=== PATIENT | female | born 1940 | race Caucasian/White ===

== ENCOUNTER 2017-03-29 16:13 | Inpatient (IN) | payer MEDICARE, OTHER ==
[~2017-03-29] VITALS: Ht 149.9 cm; Wt 56.8 kg
[~2017-03-29 16:13] MED LIST: BET80 PO; FURO40TA4 PO; NIAC10002 PO; POTA99TA21 PO; [UNRECOGNIZED DRUG - CODE] PO
[2017-03-29 16:16] VITALS: BP 151/87; PULSE 105; RESP 20; O2SAT 98
--- NOTE | 2017-03-29 16:41 | ED.REPORT ---
HPI-Dyspnea / Wheezing Date of Service Mar 29, 2017 ED Provider: Piero Castillo MD The pt is a 77 y/o female w/ a hx of CHF, thrombocytopenia, HTN, and three MIs presenting to the ED via EMS c/o SOB onset two weeks ago. 4 days ago she reports needing 6 pounds of fluid removed at [facility]. The SOB is exacerbated w/ activity. Denies CP, fevers, or a cough. She reports being on Lasix 40 mg once daily until 4 days ago, when she increased the dose to twice daily. She is also on daily Aspirin. The pt had an echo today w/ Dr. Howe who told her to come to the ED. She had new anterolateral wall defect w/ an ejection fraction of 20-25 %. Code status: Full code Nursing Notes Stated Complaint: SOB Chief Complaint: SOB Nursing Notes Reviewed: Yes Allergies: Coded Allergies: Beta-Blockers (Beta-Adrenergic Bloc (Verified Allergy, Severe, EPS HOSPITALISATION; leg pain; tremulous, 07/15/13) digoxin (Verified Allergy, Severe, loss of consciousness, 07/15/13) required long hospital stay, per pt report. dipyridamole (Verified Allergy, Severe, Cardiac Arrest, 07/15/13) Ukohiml-Unb-Kfe Reductase Inhibitor (Verified Allergy, Intermediate, leg pain, fainting, extreme low BP, 07/15/13) per pt report. dronedarone HCl (Verified Allergy, Intermediate, Increased arrthymias, ) isosorbide dinitrate (Verified Allergy, Intermediate, shortness of breath , 07/15/13) per pt report. lisinopril (Verified Allergy, Intermediate, Decreased BP; fainting, ) nebivolol HCl (Verified Allergy, Intermediate, Increased arrthymias, ) sertraline HCl (Verified Allergy, Intermediate, Nausea; diarrhea, 07/15/13) sodium bicarbonate (Verified Allergy, Intermediate, IV route: Dizzy; vomiting; dirrhea, 07/15/13) spironolactone (Verified Allergy, Mild, muscle tingling, 07/15/13) per pt report. KARINE Inhibitors (Verified Allergy, Unknown, 03/29/17) Contrast Media (Verified Allergy, Unknown, 03/29/17) fenofibrate (Verified Allergy, Unknown, 03/29/17) rivaroxaban (Verified Allergy, Unknown, excess bleeding, 01/27/14) per pt report. hydrocodone bitartrate (Verified Adverse Reaction, Severe, extreme itching , 07/15/13) required benadryl, per pt report. diltiazem HCl (Verified Adverse Reaction, Intermediate, itching skin, 07/15) required benadryl, per pt report. diazepam (Verified Adverse Reaction, Unknown, total loss of emotional control, 01/27/14) per pt report. ezetimibe (Verified Adverse Reaction, Unknown, diarrhea, hair loss, ) per pt report. Uncoded Allergies: Bicarbonate of sodium (Adverse Reaction, Intermediate, Dizzyness, vomitting , headache, 12/28/12) per pt report. Scheduled Aspirin (Aspirin) 325 Mg Tablet 325 MG PO HS Niacin (Niacin) 1,000 Mg Tablet.er 2,000 MG PO HS Scheduled PRN Furosemide (Furosemide) 40 Mg Tablet 40 MG PO DAILY PRN PRN PT REQUEST Potassium Gluconate (Potassium) 99 Mg Tablet 99 MG PO PRN dysthrymia General Time Seen by MD: 16:31 Chief Complaint Shortness of breath Hx Obtained From: Patient Arrived By: Walk-in Sudden in Onset?: Yes Onset Occurred: More than a week ago... (3 weeks) Symptom Duration: Since onset Recent Healthcare: No recent hospitalization, Recent doctor visit Similar Sx Previous: Yes Past Medical History Code status: Full code Past Medical History CHF Thrombocytopenia HTN 3 MIs CAD CABG in October of 2016 Past Surgical History Stents placed Tonsillectomy Total hysterectomy Defibrillator and pacemaker placed Bypass surgery Smoking History Unknown if Ever Smoker Social History Other Social History: Good social support Ambulatory Status Independent Review of Systems Constitutional: Denies: Fever Respiratory: Reports: Shortness of breath, Denies: Non-productive cough Cardiovascular: Denies: Chest pain Complete sys rev & neg: except as marked. Physical Exam Initial Vital Signs Vital Signs (First) Date Time Temp Pulse Resp B/P Pulse Ox O2 Delivery O2 Flow Rate FiO2 03/29/17 16:16 36.7 105 20 151/87 98 Room Air Initial VS: Reviewed Head / Eyes: Atraumatic, Normocephalic, PERRL ENT: Mucous membranes moist, Conjunctiva normal, No scleral icterus Extremities: Vascular intact, Neuro intact, No swelling, No tenderness Skin: Warm, Dry, No cyanosis Neurologic: Alert, Oriented, Nonfocal Psychiatric: Mood/affect normal, Behavior normal, Normal thought content General/Constitutional: Awake, Alert Neck: Atraumatic, Supple, Full range of motion Respiratory / Chest: Breath sounds = bilat Bibasilar crackles Cardiovascular: Regular rhythm Heart Rate / Rhythm: Positive: Tachycardia 2+ bilateral LE edema Holosystolic murmur at the L upper sternal border and apex Interpretation & Diagnostics Lab Results Interpretation Result Diagram: 03/30/17 0515 03/30/17 0515 Test 03/29/17 16:35 Hemoglobin A1c 5.4% (4.8-5.6) Total Bilirubin 0.5mg/dL (0.0-1.2) Aspartate Amino Transf (AST/SGOT) 26U/L (0-50) Alanine Aminotransferase (ALT/SGPT) 18U/L (0-32) Alkaline Phosphatase 76U/L (25-165) Pro-B-Type Natriuretic Peptide 5794pg/mL (0-738) Total Protein 8.2g/dL (6.4-8.4) Albumin 4.0g/dL (3.4-5.0) Thyroid Stimulating Hormone (TSH) 1.310uIU/mL (0.450-4.500) ECG Interpretation ECG Interpretation: Rate 96 Sinus rhythm PVCs T waves in v1-v5 Time: 16:44 Interpreted by: ED physician X-Ray Chest Interpretation Chest Xray Interpretation: IMPRESSION: 1. Interval enlargement of cardiomediastinal silhouette representing pericardial effusion or cardiomegaly. 2. New left pleural effusion. 3. Please correlate for clinical evidence of congestive heart failure exacerbation. Dictated by: Eliu Hale M.D. on 03/29/2017 at 16:57 Approved by: Eliu Hale M.D. on 03/29/2017 at 16:59 View: Portable, 1 view Interpretation / Wet Read by: Interpret - Radiologist Re-Eval/Medical Decision Med Decision/Clinical Course 77-year-old female history of CHF sent in by cardiology for admission for CHF exacerbation. She had an echocardiogram today which showed significant worsening of her CHF from previous EF 20-25% she reports exertional dyspnea. She is satting 98% on room air. Dr. Franklinol the patient and asked her to be admitted for diuresis. She was given 40 of IV Lasix in the ER. She has been on 40 mg twice a day for the last 4 days previously for milligrams daily. Source of Hx: Old records Consultation : Referral / Consult Name: Josephine Resendiz DO Consulted With: Hospitalist Call Returned at: 17:30 High Speed Operator: Will see patient, Agrees with eval, Agrees with plan, Accepts admit Counseled Regarding: Diagnosis, Lab results, Need for admission Discharge & Departure Impression: Primary Impression: CHF exacerbation Congestive heart failure type: unspecified congestive heart failure type Qualified Code: I50.9 - Heart failure, unspecified Disposition: ADMITTED TO HOSPITAL Discharge Condition All VS Reviewed: Yes Condition: Stable Referrals: NOPCP (PCP) Fabiana Howe MD Scribe Attestation Portions of this note were transcribed by Phil Dawn. I, Dr. Castillo personally performed the history, physical exam and medical decision-making; I reviewed and confirmed the accuracy of the information in the transcribed note. copies to: Fabiana Howe MD, Ben M MD Mar 29, 2017 16:41 Phil Dawn Mar 29, 2017 16:44 (6.4-8.4) Albumin 4.0g/dL (3.4-5.0) ECG Interpretation ECG Interpretation: Rate 96 Sinus rhythm PVCs T waves in v1-v5 Time: 16:44 Interpreted by: ED physician X-Ray Chest Interpretation Chest Xray Interpretation: IMPRESSION: 1. Interval enlargement of cardiomediastinal silhouette representing pericardial effusion or cardiomegaly. 2. New left pleural effusion. 3. Please correlate for clinical evidence of congestive heart failure exacerbation. Dictated by: Eliu Hale M.D. on 03/29/2017 at 16:57 Approved by: Eliu Hale M.D. on 03/29/2017 at 16:59 View: Portable, 1 view Interpretation / Wet Read by: Interpret - Radiologist Re-Eval/Medical Decision Source of Hx: Old records Consultation : Referral / Consult Name: Josephine Resendiz DO Consulted With: Hospitalist Call Returned at: 17:30 High Speed Operator: Will see patient, Agrees with eval, Agrees with plan, Accepts admit Counseled Regarding: Diagnosis, Lab results, Need for admission Discharge & Departure Impression: Primary Impression: CHF exacerbation Congestive heart failure type: unspecified congestive heart failure type Qualified Code: I50.9 - Heart failure, unspecified Disposition: ADMITTED TO HOSPITAL Discharge Condition All VS Reviewed: Yes Condition: Stable Referrals: NOPCP (PCP) Fabiana Howe MD Scribe Attestation Portions of this note were transcribed by Phil Dawn. I, Dr. Castillo personally performed the history, physical exam and medical decision-making; I reviewed and confirmed the accuracy of the information in the transcribed note. copies to: Fabiana Howe MD, Ben M MD Mar 29, 2017 16:41 Phil Dawn Mar 29, 2017 16:44
[2017-03-29 16:53] LABS: EOSINOPHILS % (AUTO) 2.1 % (0-5); Mean Corpuscular Hemoglobin 28.9 pg (27.0-35.0); Mean Corpuscular Volume 92.3 fL (81-100); NEUTROPHILS % (AUTO) 57.5 % (40-74); Platelet Count 129 bil/L (150-400)
--- NOTE | 2017-03-29 17:01 | DRSVH ---
PROCEDURE: X-RAY CHEST ONE VIEW, PORTABLE ([id number]) INDICATIONS: dyspnea TECHNIQUE: One view of the chest was acquired. COMPARISON: [facility], , CHEST 1VW (PORTABLE), 01/27/2014, 11:59. FINDINGS: Surgical changes and devices: Sternotomy with mediastinal postoperative changes and left-sided cardia c pacer. Lungs and pleura: Small new left-sided pleural effusion. No pneumothorax. Lungs are clear. Mediastinum: Mediastinal contours appear normal. Heart size is enlarged and increased since the pre vious study. Bones and chest wall: No suspicious bony lesions. Overlying soft tissues appear unremarkable. IMPRESSION: 1. Interval enlargement of cardiomediastinal silhouette representing pericardial effusion or cardiome ritu. 2. New left pleural effusion. 3. Please correlate for clinical evidence of congestive heart failure exacerbation. Dictated by: Eliu Hale M.D. on 03/29/2017 at 16:57 Approved by: Eliu Hale M.D. on 03/29/2017 at 16:59
[2017-03-29 17:04] VITALS: BP 113/64; PULSE 98; RESP 24; O2SAT 95
[2017-03-29 17:17] LABS: TROPONIN T < 0.010 ug/L (0.0-0.011)
[2017-03-29] MEDS ORDERED: Senna-Docusate 8.6-50 mg Tablet PO PRN (17:25)
[2017-03-29] MEDS ORDERED: Polyethylene Glycol (PEG) 17 Gm Powder PO PRN (17:25)
[2017-03-29] MEDS ORDERED: Atropine 1 mg/10 mL (Code) Syringe IVPUSH PRN (17:25)
[2017-03-29] MEDS ORDERED: Furosemide 10 mg/mL 4 mL Inj IVPUSH ONE (17:25)
[2017-03-29] MEDS ORDERED: Alum-Mag Hydrox-Simeth 30 mL Suspension PO PRN (17:25)
[2017-03-29] MEDS ORDERED: Ondansetron 2 mg/mL 2 mL Inj IVPUSH PRN (17:25)
[2017-03-29 17:27] LABS: Magnesium 2.1 mg/dL (1.6-2.6)
[2017-03-29] MEDS ORDERED: ASPI325T32 PO (17:33)
[2017-03-29 17:53] VITALS: BP 140/71; PULSE 95; RESP 18; O2SAT 94
[2017-03-29 17:57] VITALS: BP 138/63; PULSE 107; RESP 18; O2SAT 96
[2017-03-29 18:22] VITALS: PULSE 92
[2017-03-29 18:37] LABS: APPEARANCE,URINE CLEAR (CLEAR,HAZY); COLOR,URINE YELLOW (YELLOW); OCCULT BLOOD,URINE NEGATIVE (NEGATIVE); UROBILINOGEN,URINE NORMAL (NORMAL)
--- NOTE | 2017-03-29 18:38 | NUR ---
Admit Pt admitted to [facility] room 3006 via ED, report received from Mitra GRIGGS. Pt arrived via stretcher, a/o x 4, able to transfer self to scale and bed, steady gait observed. Admit completed, pt eating dinner, oriented to room, call light and bathroom. Pt currently eating dinner comfortably in bed.
--- NOTE | 2017-03-29 19:01 | PCM.HPMED ---
Subjective Date of Service Mar 29, 2017 Primary Provider: Admitting Physician: Hari Maddox MD Primary Care Physician: Nopmainor Attending Physician: Hari Maddox MD Chief Complaint: Dyspnea. . History of Present Illness: Karla Ruggiero is a 77-year-old female with a past medical history significant for coronary artery disease status post OH 3, numerous bare metal coronary stents, and four-vessel CABG 2, heart failure with reduced ejection fraction 20 -25%, hyperlipidemia and elevated lipoprotein a who presented to [facility] emergency Department at instruction of her tile helper Dr. Howe for acute on chronic CHF exacerbation. The patient reports that she has been experiencing shortness of breath and dyspnea on exertion for several weeks. She endorses associated orthopnea. She was seen 4 days ago at [facility] emergency department and received IV diuresis and reportedly diuresed approximately 6 pounds of fluid over 2-3 hours. She recently had an echocardiogram performed which revealed worsening heart failure with reduced ejection fraction now 20-25% from 35-40% previously. Her tile helper, Dr. Howe, called her this afternoon and instructed her to go to the emergency Department. The patient denies headache, vision changes, cough, chest pain, paroxysmal nocturnal dyspnea, abdominal pain, nausea, vomiting, fever, chills, dysuria, diarrhea or constipation. She reports that her lower extremity edema was worsening until 4 days ago when she was seen at [facility]. Vital signs in the ER: Temperature 36.5. Pulse 107. Respiratory rate 18. Blood pressure 138/63. Pulse ox 96% on room air. She received furosemide IV 40 mg 1 in the ED. No PCP. Material Handler 2Nd Shift is Dr. Howe and Dr. Guardado in [place], [place]. . Review of Systems: A comprehensive review of systems was conducted with the patient and found to be negative except as above in the History of Present Illness. . Allergies Coded Allergies: Beta-Blockers (Beta-Adrenergic Bloc (Verified Allergy, Severe, EPS HOSPITALISATION; leg pain; tremulous, 07/15/13) digoxin (Verified Allergy, Severe, loss of consciousness, 07/15/13) required long hospital stay, per pt report. dipyridamole (Verified Allergy, Severe, Cardiac Arrest, 07/15/13) Cjqelkp-Uhn-Rhy Reductase Inhibitor (Verified Allergy, Intermediate, leg pain, fainting, extreme low BP, 07/15/13) per pt report. dronedarone HCl (Verified Allergy, Intermediate, Increased arrthymias, ) isosorbide dinitrate (Verified Allergy, Intermediate, shortness of breath , 07/15/13) per pt report. lisinopril (Verified Allergy, Intermediate, Decreased BP; fainting, ) nebivolol HCl (Verified Allergy, Intermediate, Increased arrthymias, ) sertraline HCl (Verified Allergy, Intermediate, Nausea; diarrhea, 07/15/13) sodium bicarbonate (Verified Allergy, Intermediate, IV route: Dizzy; vomiting; dirrhea, 07/15/13) spironolactone (Verified Allergy, Mild, muscle tingling, 07/15/13) per pt report. KARINE Inhibitors (Verified Allergy, Unknown, 03/29/17) Contrast Media (Verified Allergy, Unknown, 03/29/17) fenofibrate (Verified Allergy, Unknown, 03/29/17) rivaroxaban (Verified Allergy, Unknown, excess bleeding, 01/27/14) per pt report. hydrocodone bitartrate (Verified Adverse Reaction, Severe, extreme itching , 07/15/13) required benadryl, per pt report. diltiazem HCl (Verified Adverse Reaction, Intermediate, itching skin, 07/15) required benadryl, per pt report. diazepam (Verified Adverse Reaction, Unknown, total loss of emotional control, 01/27/14) per pt report. ezetimibe (Verified Adverse Reaction, Unknown, diarrhea, hair loss, ) per pt report. Uncoded Allergies: Bicarbonate of sodium (Adverse Reaction, Intermediate, Dizzyness, vomitting , headache, 12/28/12) per pt report. Home Medications Aspirin 325 mg daily. Furosemide 40 mg daily as needed. Niacin 2000 mg daily at bedtime. Potassium gluconate 99 mg as needed for dysrhythmia. . PMH 1. CAD status post OH 3 and four-vessel CABG 2. 2. Hyperlipidemia. 3. Elevated Lipoprotein a. 4. Heart failure with reduced ejection fraction 20-25% status post defibrillator and pacemaker insertion. . Surgical History 1. Tonsillectomy. 2. Tubal . 3. Hysterectomy. 4. Fibrous tumor removal and bilateral salpingo-oophorectomy. 5. Lipoma removal. 6. Lasix. 7. Four-vessel CABG 2 (most recent October 2016). 8. Coronary bare-metal stents ~20-30. 9. Defibrillator and pacemaker insertion. . Family History Mother who of COPD at 79 years old. Father who had CABG and of heart failure at 90 years old. One brother who of a brain tumor at 38 years old. 3 brothers and 1 sister who are alive and healthy. . Social History Hx Alcohol Use: Yes (1 mixed drink/glass of wine 1x/week) Hx Substance Use: No Hx Tobacco Use: No Smoking Status: Never Smoker Additional Information The patient is . She has 3 sons and 1 daughter who are healthy. 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 . Exam Vital Signs Vital Sign - Last Date Time Temp Pulse Resp B/P Pulse Ox O2 Delivery O2 Flow Rate FiO2 03/29/17 17:57 36.5 107 18 138/63 96 Room Air Exam General: Older female lying in bed and in no acute distress, well-developed, well-nourished, appropriately interactive. HEENT: Normocephalic, atraumatic. External ears without defect. Pupils equal, round, and reactive to light. Anicteric sclerae, moist conjunctivae, and no lid lag. Oropharynx free of erythema and cobble stoning with moist mucosa. Neck: Supple with full range of motion. No jugular venous distension. No bruits. No lymphadenopathy or thyromegaly. Cardiovascular: Regular rate and rhythm with soft holosystolic murmur at LUSB. No rubs or gallops appreciated. Pacemaker in left chest. Pulmonary: Clear to auscultation except for fine bibasilar crackles. No wheezes or rhonchi. Normal respiratory effort with no use of accessory muscles. Abdomen: Soft, nontender, nondistended, bowel sounds present. No hepatosplenomegaly or masses appreciated. Extremities: No clubbing or cyanosis. Mild pitting edema bilaterally in lower extremities to pretibial area. Skin: Normal temperature, turgor, and texture; no rash, ulcers, or subcutaneous nodules appreciated. Neurological: Cranial nerves grossly intact. Normal muscle strength, tone, and bulk. Reflexes, coordination, and sensory function within normal limits. No known gait impairment. Psychiatric: Normal mood and affect. Alert and oriented to person, place, and time. . Lab and Diagnostics Labs Item Value Date Time Calcium Level 9.1 mg/dL 03/29/17 1635 Magnesium Level 2.1 mg/dL 03/29/17 1635 Total Bilirubin 0.5 mg/dL 03/29/17 1635 Aspartate Amino Transf (AST/SGOT) 26 U/L 03/29/17 1635 Alanine Aminotransferase (ALT/SGPT) 18 U/L 03/29/17 1635 Alkaline Phosphatase 76 U/L 03/29/17 1635 Troponin T < 0.010 ug/L 03/29/17 1635 Pro-B-Type Natriuretic Peptide 5794 pg/mL H 03/29/17 1635 Total Protein 8.2 g/dL 03/29/17 1635 Albumin 4.0 g/dL 03/29/17 1635 Thyroid Stimulating Hormone (TSH) 1.310 uIU/mL 03/29/17 1635 Result Diagram: 03/29/17 1635 03/29/17 1635 X-Rays, CTs and MRIs X-RAY CHEST ONE VIEW, PORTABLE IMPRESSION: 1. Interval enlargement of cardiomediastinal silhouette representing pericardial effusion or cardiomegaly. 2. New left pleural effusion. 3. Please correlate for clinical evidence of congestive heart failure exacerbation. Dictated by: Eliu Hale M.D. on 03/29/2017 at 16:57 . 12-lead ECG EKG: Sinus rhythm, heart rate 96, left axis, Prolonged QTC at 530 ms otherwise normal intervals, poor R-wave progression, LVH, frequent PVCs, pathological Q waves in leads V1 through V3 indicative of old anteriolateral OH, no acute ischemic changes such as ST elevation or depression. . Cardiac Echo Impressions Echocardiogram Interpretation Summary: The left ventricle is moderately dilated (LVIDd increased from 5.2 to 6.1 cm). The ejection fraction is estimated to be 20-25%. Compared to the prior exam, the left ventricular function is reduced (from 35 to 40% to 20-25%). Except basal posterolateral and the basal anterolateral segments, rest of the LV segments are severely hypokinetic to akinetic. Compared to the prior exam, the mid to distal anterolateral and the apical wall motion abnormalities has increased in severity. Spontaneous contrast is noted consistent with low flow state. The right ventricle is borderline dilated. Right ventricular systolic function is moderately reduced. There is a pacemaker lead in the right ventricle. There is moderate to severe mitral regurgitation. Compared to the prior echo study, there has been an increase in the severity of mitral regurgitation. There is mild to moderate tricuspid regurgitation. Compared to the prior echo exam, there has been an increase in TR severity. The right ventricular systolic pressure is estimated at 41 mmHg assuming a right atrial pressure of 3 mm Hg. Compared to the prior echo exam, there has been an increase in the severity of pulmonary hypertension. Reading Physician:PM . Assessment & Plan Karla Ruggiero is a 77-year-old female with a past medical history significant for coronary artery disease status post OH 3, numerous bare metal coronary stents, and four-vessel CABG 2, heart failure with reduced ejection fraction 20 -25%, hyperlipidemia and elevated lipoprotein a who presented to [facility] emergency Department at instruction of her tile helper Dr. Howe for acute on chronic CHF exacerbation. 1. Acute on chronic heart failure with reduced ejection fraction 20-25% exacerbation, present on admission. Active - probably precipitated by recent silent OH given new wall motion abnormality/ akinesis and new EF worsening - The patient has a history of systolic CHF , diastolic CHF and cor pulmonale secondary to sleep apnea and obesity hypoventilation syndrome. - Echocardiogram demonstrated worsening CHF with EF 20-25%, as above. - EKG demonstrated sinus rhythm with prolonged QTC of 530 ms and frequent PVCs without acute ischemic changes. - BNP 5794. - Chest x-ray demonstrated interval enlargement of cardiomediastinal silhouette representing pericardial effusion or cardiomegaly and new left pleural effusion , as above. - Continue diuresis with Lasix IV 40 mg daily. - Ordered daily standing weights, strict I&O's, 2 L fluid restriction, and CHF teaching. - Dr. Howe has been consulted and cardiology will plan to see the patient. Chronic problems: 2. Coronary artery disease, present on admission. Stable. - The patient has had OH 3 and four-vessel CABG 2 with numerous cardiac bare- metal stents - Continue aspirin 325 mg daily 3. Hyperlipidemia and Lipoprotein a, present on admission. Presumed stable. - Patient reports allergy to statin therapy. - Continue niacin 2000 mg daily at bedtime. PRN antiemetics: Zofran and Maalox. PRN bowel regimen: Senna and MiraLAX. PRN analgesics: Tylenol. Patient is admitted under inpatient status with expected length of stay greater than 2 midnights due to severity of presenting symptoms, risk of adverse event, and complexity of treatment plan. . VTE Prophylaxis: Sub-Q Heparin (Unfractionated) Resuscitation Status: CPR: Attempt Resuscitation Attending Statement Patient seen independently. Case discussed with resident physician Dr Resendiz, I agree with history, exam, assessment and plan as outlined above copies to: Fabiana Howe MD, [place] M DO Mar 29, 2017 18:18 Hari Maddox MD Mar 30, 2017 07:03
[2017-03-29] MEDS: Niacin SR 500 mg ER12 Tablet PO SCH (20:44)
[2017-03-29 22:07] VITALS: BP 103/58; PULSE 91; RESP 18; O2SAT 95
[2017-03-30] VITALS (12 sets, daily range): BP systolic 86–132; BP diastolic 45–72; PULSE 59–93; RESP 18–20; O2SAT 94–99
[2017-03-30] MEDS: Heparin 5,000 Unit/mL Inj SUBQ SCH ×3 (00:17→18:16)
[2017-03-30] MEDS: Sodium Chloride LOK Flush 10 mL Syringe IVFLUSH SCH ×3 (00:17→18:16)
--- NOTE | 2017-03-30 05:30 | NUR ---
Stable Overnight Pt c/o cramping at LEs at beginning of the shift, pt had Lasix IV at dayshift, pt suspected symptoms caused by low K+, 03/29 am K 3.8 WNL prior to Lasix, recheck K has been ordered am 03/30. Warm blanket provided to LEs, and pt stretched leg muscles for a while. Leg cramping resolved. Otherwise no complains overnight, denies chest pain or pressure, some SOB on exertion, able to lying down HOB 30 degree during sleep, some crackles at left posterior LL, lung sounds left <right, no wheezes, TELE: SR 80s-90s, lots of multifocal PVCs, IVCD, rare pacing rate per court monitor. Trace edema at bilateral LEs, void large amount of urine. CHF educational brochure provided to pt, educated s/s of CHF, pt verbalizes understanding. Continue monitoring.
[2017-03-30 05:47] LABS: EOSINOPHILS % (AUTO) 5.5 % (0-5); MONOCYTES % (AUTO) 17.2 % (4-12); Mean Corpuscular Hemoglobin 28.9 pg (27.0-35.0); Mean Corpuscular Volume 92.6 fL (81-100); NEUTROPHILS % (AUTO) 48.6 % (40-74); Platelet Count 139 bil/L (150-400)
[2017-03-30 06:17] LABS: Creatine Kinase 53 U/L (21-215)
[2017-03-30] MEDS ORDERED: Furosemide 10 mg/mL 4 mL Inj IVPUSH SCH ×2 (09:55→17:00)
--- NOTE | 2017-03-30 11:28 | NUR ---
Anthony Pt reporting feeling HR increased, and reports that it usually happens right before any indication of BMs. health technician hearing reporting HR 130s and coming down. Addendum: 03/30/17 at 1134 by CHRIST VERA RN Reports small BM after episode and now HR feels increased again. health technician hearing reporting HR 130s and already trending down. Pt requested available oral nitro and 2nd trip to BR produced BM. Addendum: 03/30/17 at 1649 by CHRIST VERA RN Provider notified, Cardiology consulted, new med orders. Remains remote tele observation with [id number] checks in place.
--- NOTE | 2017-03-30 11:53 | PCM.PNMED ---
Subjective Date of Service Mar 30, 2017 Subjective breathing improved after Iv lasix Exam Vital Signs Vital Sign - Last Date Time Temp Pulse Resp B/P Pulse Ox O2 Delivery O2 Flow Rate FiO2 03/30/17 11:39 90 03/30/17 10:07 36.6 18 132/72 99 Room Air Intake and Output 03/29/17 03/29/17 03/30/17 Cumulative From/Thru 15:00 23:00 07:00 03/29/17 16:16 - 03/29/17 18:48 Intake Total 400 ml 400 ml Output Total 750 ml 750 ml Balance -350 ml -350 ml Intake Oral 400 ml 400 ml Output Urine Total 750 ml 750 ml # Voids 1 1 Exam General: Older female lying in bed and in no acute distress, well-developed, well-nourished, appropriately interactive. HEENT: Normocephalic, atraumatic. External ears without defect. Pupils equal, round, and reactive to light. Anicteric sclerae, moist conjunctivae, and no lid lag. Oropharynx free of erythema and cobble stoning with moist mucosa. Neck: Supple with full range of motion. No jugular venous distension. No bruits. No lymphadenopathy or thyromegaly. Cardiovascular: Regular rate and rhythm with soft holosystolic murmur at LUSB. No rubs or gallops appreciated. Pacemaker in left chest. Pulmonary: Clear to auscultation except for fine bibasilar crackles. No wheezes or rhonchi. Normal respiratory effort with no use of accessory muscles. Abdomen: Soft, nontender, nondistended, bowel sounds present. No hepatosplenomegaly or masses appreciated. Extremities: No clubbing or cyanosis. Mild pitting edema bilaterally in lower extremities to pretibial area. Skin: Normal temperature, turgor, and texture; no rash, ulcers, or subcutaneous nodules appreciated. Neurological: Cranial nerves grossly intact. Normal muscle strength, tone, and bulk. Reflexes, coordination, and sensory function within normal limits. No known gait impairment. Psychiatric: Normal mood and affect. Alert and oriented to person, place, and time. IVs and Medications Medications Reviewed: Medications were reviewed in detail Lab and Diagnostics Result Diagram: 03/30/17 0515 03/30/17 0515 X-Rays, CTs and MRIs X-RAY CHEST ONE VIEW, PORTABLE IMPRESSION: 1. Interval enlargement of cardiomediastinal silhouette representing pericardial effusion or cardiomegaly. 2. New left pleural effusion. 3. Please correlate for clinical evidence of congestive heart failure exacerbation. Dictated by: Eliu Hale M.D. on 03/29/2017 at 16:57 . 12-lead ECG EKG: Sinus rhythm, heart rate 96, left axis, Prolonged QTC at 530 ms otherwise normal intervals, poor R-wave progression, LVH, frequent PVCs, pathological Q waves in leads V1 through V3 indicative of old anteriolateral AR, no acute ischemic changes such as ST elevation or depression. . Cardiac Echo Impressions Echocardiogram Interpretation Summary: The left ventricle is moderately dilated (LVIDd increased from 5.2 to 6.1 cm). The ejection fraction is estimated to be 20-25%. Compared to the prior exam, the left ventricular function is reduced (from 35 to 40% to 20-25%). Except basal posterolateral and the basal anterolateral segments, rest of the LV segments are severely hypokinetic to akinetic. Compared to the prior exam, the mid to distal anterolateral and the apical wall motion abnormalities has increased in severity. Spontaneous contrast is noted consistent with low flow state. The right ventricle is borderline dilated. Right ventricular systolic function is moderately reduced. There is a pacemaker lead in the right ventricle. There is moderate to severe mitral regurgitation. Compared to the prior echo study, there has been an increase in the severity of mitral regurgitation. There is mild to moderate tricuspid regurgitation. Compared to the prior echo exam, there has been an increase in TR severity. The right ventricular systolic pressure is estimated at 41 mmHg assuming a right atrial pressure of 3 mm Hg. Compared to the prior echo exam, there has been an increase in the severity of pulmonary hypertension. Reading Physician:PM . 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 Howe for acute on chronic CHF exacerbation. 1. Acute on chronic heart failure with reduced ejection fraction 20-25% exacerbation, present on admission. Active - probably precipitated by recent silent AR given new wall motion abnormality/ akinesis and new EF worsening - The patient has a history of systolic CHF , diastolic CHF and cor pulmonale secondary to sleep apnea and obesity hypoventilation syndrome. - Echocardiogram demonstrated worsening CHF with EF 20-25%, from 35-40%as above. - EKG demonstrated sinus rhythm with prolonged QTC of 530 ms and frequent PVCs without acute ischemic changes. - BNP 5794. - Chest x-ray demonstrated interval enlargement of cardiomediastinal silhouette representing pericardial effusion or cardiomegaly and new left pleural effusion , as above. - Continue diuresis with Lasix IV 40 mg daily. -patient allergic to BB and ACEI.patient states Renexa works better for her - Ordered daily standing weights, strict I&O's, 2 L fluid restriction, and CHF teaching. - Dr. Howe has been consulted Chronic problems: 2. Coronary artery disease, present on admission. Stable. - The patient has had AR 3 and four-vessel CABG 2 with numerous cardiac bare- metal stents - Continue aspirin 325 mg daily 3. Hyperlipidemia and Lipoprotein a, present on admission. Presumed stable. - Patient reports allergy to statin therapy. - Continue niacin 2000 mg daily at bedtime. PRN antiemetics: Zofran and Maalox. PRN bowel regimen: Senna and MiraLAX. PRN analgesics: Tylenol. Patient is admitted under inpatient status with expected length of stay greater than 2 midnights due to severity of presenting symptoms, risk of adverse event, and complexity of treatment plan. disposition:discharge in 2-3 days VTE Prophylaxis: Sub-Q Heparin (Unfractionated) VTE Mechanical Devices: Intermittant Pneumatic CD Resuscitation Status: CPR: Attempt Resuscitation Hari Maddox MD Mar 30, 2017 11:53
--- NOTE | 2017-03-30 17:14 | CONS ---
[address] [address] CONSULTATION REPORT PATIENT: ZEFERINO RODRIGUEZ : 1940 MR#: [id number] ADMIT: 03/29/2017 JOB ID: [id number] DATE OF SERVICE: 03/30/2017 REASON FOR CARDIOLOGY CONSULT: Hospitalist team asked me to see this patient regarding CHF exacerbation, worsening LV function, mitral regurgitation. CHIEF COMPLAINT: Worsening shortness of breath. PRESENT HISTORY: This 77-year-old, pleasant female, who has a very complex coronary artery disease history for many years, including four-vessel bypass surgery in 1988, multiple PCIs in the past, recurrence of unstable angina in october 2016, redo bypass surgery at [place], [place], with SVG graft to PDA, sequential SVG graft to OM1, OM2, and reconstruction of free WADSWORTH graft to diagonal, history of LV ejection fraction 25% at the time of redo bypass surgery, ventricular tachycardia, status post chronic dual-chamber AICD in 2006, replacement of pulse generator during redo bypass surgery in October 2016, underlying left bundle branch block, paroxysmal atrial fibrillation/flutter, who refused to be on anticoagulation, who is intolerant to multiple cardiac medications. Got admitted because of above-mentioned chief complaint. From last couple of days, the patient has been experiencing worsening shortness of breath and PND as well as 6 pounds of weight gain. Four days ago, she was seen at [facility] where she was started on Lasix. Before that, she was taking Lasix as needed. She started taking Lasix up to 40 mg three times a day. However, her shortness of breath was not getting better. She had echocardiogram yesterday which revealed moderately dilated left ventricle with LV end-diastolic dimension, increase from 5.2 to 6.1 cm with LV ejection fraction 20% to 25%, except basal posterolateral and the basal anterolateral segments. Rest of the LV segments severely hypokinetic to akinetic with worsening mid to distal anterolateral and apical wall motion abnormalities, spontaneous contrast in the left ventricle, moderately reduced right ventricular function, moderate to severe mitral regurgitation, mild to moderate tricuspid regurgitation and pulmonary artery systolic pressure about 41 mmHg. Echo result was called to the patient and advised to come to the hospital. In the hospital she received IV Lasix. She was feeling better. She is not having any active chest pain or palpitation or stroke-like symptoms or fever, cough expectoration. Last time she was started on bisoprolol 1.25 mg but she has not started taking it. PAST MEDICAL HISTORY: History of coronary artery bypass surgery in 1988 and redo in October 2016 at [place]. She had a left heart catheterization on November 22, 2016 which required revealed no significant left main disease, occluded LAD at the ostium, patent proximal to mid circumflex stent but critical stenosis of large 1st obtuse marginal branch, 70% distal circumflex disease, multiple proximal to distal about 70% RCA disease with patent WADSWORTH graft to LAD, and about 80% LAD disease near the apex, free ANNMARIE graft to diagonal about 50%. Subsequently patient underwent SVG graft to PDA, sequential SVG graft to OM1, OM2, and reconstruction of free ANNMARIE graft to diagonal and replacement of [employer] dual-chamber AICD on November 17, 2016. The patient has history of paroxysmal AFib/flutter, left bundle branch block, ventricular tachycardia, hyperlipidemia as well. PAST SURGICAL HISTORY: Cardiac surgery as stated above. Multiple stenting, AICD, tonsillectomy, tubal , hysterectomy, fibrous tumor removal and bilateral salpingo-oophorectomy, lipoma removal. ALLERGIES: Patient is intolerant to multiple beta blockers. However was able to tolerate metoprolol tartrate 12.5 mg twice a day for short duration. She has not started bisoprolol. She never tried bisoprolol. She is intolerant to digoxin, disopyramide, statin, amiodarone, isosorbide dinitrate, lisinopril, nebivolol, sertraline, spironolactone, KARINE inhibitor, fenofibrate, Xarelto, hydrocodone, diltiazem, diazepam, ezetimibe. SOCIAL HISTORY: Denies any current tobacco abuse, alcohol abuse. FAMILY HISTORY: Positive for coronary artery disease. REVIEW OF SYSTEMS: Ten point review of systems were obtained. They are negative except as stated above. PHYSICAL EXAMINATION: Blood pressure 132/72, heart rate 93, respiratory rate 18, oxygen saturation 99%. Weight 56.8 kg. Today she has negative balance of 1264. HEENT: No significant anemia. Neck: Positive hepatojugular reflux. Chest: Bilateral basal crepitations. CVS: S1 appears normal. P2 appears prominent. Paradoxical 2nd heart sound. No S3, no S4, and grade 2/6 pansystolic murmur at the apex. Abdomen: No obvious pulsatile mass. Extremities: Mild bilateral pedal edema. Vascular: No evidence of critical limb ischemia. UNISAW OPERATOR: Alert, oriented to time, place, and person. No obvious motor or sensory deficit. LABORATORIES: WBC 3.8, hemoglobin 9.8, platelets 139. Yesterday hemoglobin 10.1. In December 2013 it was 14.4. INR 0.98. Sodium 141, potassium 4.0, BUN 21, creatinine 1.05. Magnesium 2.1. CPK 53. Troponin T less than 0.010 and less than 0.010. ProBNP 5794. Triglycerides 58, total cholesterol 187, LDL 104, HDL 71. TSH 1.31. X-ray chest suggestive of small new left-sided pleural effusion. Enlarged heart. EKG on admission revealed possible ectopic atrial rhythm with underlying left bundle branch block, intermittent PVCs. QTc 530 msec, possible LVH, ventricular couplets. ASSESSMENT AND PLAN: Acute on chronic predominantly systolic heart failure with left ventricular ejection fraction 20% to 25% with worsening left ventricular dilatation, worsening mitral regurgitation which appears to be ischemic, now moderate to severe mitral regurgitation, history of redo bypass surgery in October 2016, history of dual-chamber automatic implantable cardioverter-defibrillator , paroxysmal atrial flutter/fibrillation, anemia, spontaneous echo contrast in the left ventricle. I have detailed discussion with the patient about underlying cardiac problems, worsening LV function, mitral regurgitation and further management. During telemetry, patient has episode of regular tachycardia, likely SVT. However, atrial flutter cannot be ruled out. I again discussed with the patient about anticoagulation for the prevention of stroke. However, patient is not interested. At present, she is not having any acute infarction. Troponin normal. However, I will recommend repeat left heart catheterization to make sure there is no graft shutdown a couple of days ago. Meanwhile we will optimize IV Lasix. Discussed about trial of bisoprolol and hydralazine which she was not given before. At present, she would like bisoprolol to try. We will try 1.25 mg. If she is able to tolerate then she may consider adding hydralazine for afterload reduction as well. She will think about left heart catheterization but she would like to have it done in [place], [place], where she has had all her cardiac intervention. Cardiology service will continue to follow this patient. Thanks for the Cardiology consult. Total time spent today including reviewing old records, at least 70 minutes.
[2017-03-30] MEDS ORDERED: .Epic Conversion Completed XX PRN (17:45)
--- NOTE | 2017-03-30 18:22 | NUR ---
Lightheadedness Reporting "spacey" "lightheaded" feeling with standing and walking to BR. BP WNL and negative for orthostatic hypotension. Encouraged to use SBA with ambulation.
[2017-03-30] MEDS: Niacin SR 500 mg ER12 Tablet PO SCH (21:00)
== END 2017-03-31 01:31 | disposition admitted as inpatient to this hospital (09) | DRG 951 ==
LOC: SED 16:13 → MPC 17:26
PROVIDERS: ADMIT Internal Medicine; ATTEND Internal Medicine
DX: R69 Illness, unspecified (principal)